=== PATIENT | female | born 1960 | race Caucasian/White ===

== ENCOUNTER 2018-11-15 12:48 | Emergency (ER) | payer OTHER ==
[~2018-11-15] VITALS: Ht 162.6 cm; Wt 50.0 kg
[2018-11-15 12:53] VITALS: BP 120/75
[2018-11-15] MEDS ORDERED: IBUPROFEN 200 MG TABLET ONE (13:09)
[2018-11-15] MEDS ORDERED: IBUPROFEN 200 MG TABLET PO ONE (13:30)
== END 2018-11-15 14:35 | disposition home or self-care (01) ==
LOC: ED 14:33
DX: S82.65XA Nondisplaced fracture of lateral malleolus of left fibula, initial encounter for closed fracture (principal); X50.1XXA Overexertion from prolonged static or awkward postures, initial encounter; Y93.02 Activity, running; Y92.89 Other specified places as the place of occurrence of the external cause; Y99.8 Other external cause status
CPT/HCPCS: 29505; 29515; 99283